=== PATIENT | female | born 1965 | race Caucasian/White ===

== ENCOUNTER 2016-03-24 16:36 | Emergency (ER) | payer OTHER ==
[2016-03-24 16:50] VITALS: BP 124/75; PULSE 64; TEMP 97.9; BMI 23.6
--- NOTE | 2016-03-24 18:35 | PDOC ---
History of Present Illness - General Chief Complaint: Injury Stated Complaint: LACERATION Time Seen by Provider: 03/24/16 18:15 History Source: Patient Exam Limitations: No Limitations - History of Present Illness Initial Comments: 03/24/16 18:30 CC laceration with metal kitchen object yesterday; last Td unknown Occurred: reports: yesterday Severity: reports: mild Past History - Past Medical History Allergies/Adverse Reactions: Allergies Allergy/AdvReac Type Severity Reaction Status Date / Time No Known Drug Allergies Allergy Verified 03/24/16 16:50 Home Medications: Ambulatory Orders Iron Gly,Fum/C/B12/Me-Thfolate [Maxaron Forte Tablet] 1 each PO DAILY 09/23/14 Norethindrone-E.estradiol-Iron [Lo Loestrin Fe 1-10 Tablet] 1 tab PO DAILY 09/23 Oxycodone HCl/Acetaminophen [Percocet 5/325 -] 1 tab PO Q4H #30 tablet 10/03/14 Suicide Attempt (Hx): No Other medical history: NONE - Surgical History Cholecystectomy: Yes - Immunization History Immunization Up to Date: Yes - Psycho/Social/Smoking Cessation Hx Anxiety: No Suicidal Ideation: No Smoking History: Never smoked Have you smoked in the past 12 months: No Hx Alcohol Use: No Drug/Substance Use Hx: No Substance Use Type: None Hx Substance Use Treatment: No Review of Systems - Review of Systems Constitutional: No: Chills, Fever, Malaise Respiratory: No: Symptoms reported, Cough Musculoskeletal: Yes: Other (1 cm laceration dorsum foot) *Physical Exam - Vital Signs Last Vital Signs Temp Pulse Resp BP Pulse Ox 97.9 F 64 20 124/75 98 03/24/16 16:47 03/24/16 16:47 03/24/16 16:47 03/24/16 16:47 03/24/16 16:47 - Physical Exam General Appearance: Yes: Appropriately Dressed. No: Apparent Distress HEENT: negative: TMs Normal, Pharynx Normal Musculoskeletal: positive: Other (1 cm laceration to left for dorsum foot at proximal 1st MT area; healing well, not infected) Medical Decision Making - Medical Decision Making 03/24/16 18:33 lwound check in 2 days; pt refuses Td shot at this time may have had recnet *DC/Admit/Observation/Transfer Diagnosis at time of Disposition: Laceration of left foot Qualifiers: Encounter type: initial encounter Qualified Code(s): S91.312A - Laceration without foreign body, left foot, initial encounter - Discharge Dispostion Disposition: HOME Condition at time of disposition: Stable Admit: No - Patient Instructions Additional Instructions: wound check with local MD in 2 days; please check with local MD about tetanus status - Post Discharge Activity Work/School Note: Back to Work
== END 2016-03-24 18:51 | disposition home or self-care (01) ==
LOC: JERFT 16:36
DX: S91.312A Laceration without foreign body, left foot, initial encounter (principal); W45.8XXA Other foreign body or object entering through skin, initial encounter; Y93.9 Activity, unspecified; Y92.000 Kitchen of unspecified non-institutional (private) residence as the place of occurrence of the external cause
CPT/HCPCS: 99281-25

== ENCOUNTER 2016-03-30 20:33 | Emergency (ER) | payer OTHER ==
[2016-03-30 20:51] VITALS: BP 105/42; PULSE 70; TEMP 98.7; BMI 23.8
--- NOTE | 2016-03-30 21:07 | PDOC ---
History of Present Illness - General Chief Complaint: Pain Stated Complaint: SWOLLEN RT FINGER Time Seen by Provider: 03/30/16 20:49 History Source: Patient, Other (daughter) Exam Limitations: No Limitations - History of Present Illness Occurred: reports: last week Upper Extremity Pain Location: right: 3rd finger Method of Injury: reports: direct blow Extremity Pain Location - Extremity Pain Location Extremity Pain Locations: right: 3rd finger (redness to dorsal distal phalanx) Past History - Travel Traveled outside of the country in the last 30 days: No Close contact w/someone who was outside of country & ill: No - Past Medical History Allergies/Adverse Reactions: Allergies Allergy/AdvReac Type Severity Reaction Status Date / Time No Known Drug Allergies Allergy Verified 03/30/16 20:42 Home Medications: Ambulatory Orders Cephalexin Monohydrate [Keflex -] 500 mg PO BID #14 capsule 03/30/16 Ibuprofen [Motrin -] 800 mg PO Q6H #30 tablet 04/19/16 Suicide Attempt (Hx): No - Surgical History Cholecystectomy: Yes - Immunization History Immunization Up to Date: Yes - Psycho/Social/Smoking Cessation Hx Anxiety: No Suicidal Ideation: No Smoking History: Never smoked Have you smoked in the past 12 months: No Hx Alcohol Use: No Drug/Substance Use Hx: No Substance Use Type: None Hx Substance Use Treatment: No Review of Systems - Review of Systems Comments:: 03/30/16 21:02 right 3rd digit redness and pain to distal dorsal phalanx neg numbness/tingling sensation *Physical Exam - Vital Signs Last Vital Signs Temp Pulse Resp BP Pulse Ox 98.7 F 70 17 105/42 98 03/30/16 20:43 03/30/16 20:43 03/30/16 20:43 03/30/16 20:43 03/30/16 20:43 - Physical Exam Comments: 03/30/16 21:03 Right 3rd digit erythema to distal dorsal distal phalanx cap refill<2sec F.R.O.M. pain on palp to distal dorsal phalanx neg lymphangitis ED Treatment Course - RADIOLOGY Radiology Studies Ordered: Category Date Time Status FINGER(S) RIGHT [RAD] Stat Radiology 03/30/16 21:01 Ordered Radiograph Interpretation: 03/30/16 21:05 XR right 3rd digit neg fx/dislocations Progress Note - Progress Note Progress Note: 50-year-old female who is right hand dominant presents to the emergency department complaining of pain to the dorsal distal aspect of the right third digit. Patient states she hit it against a wall last week but the pain was subsiding. She noticed slight redness 2 days ago which increased in severity and minimally in size last evening. She denies extremity numbness or tingling sensation. Patient denies fever/chills or extremity numbness or tingling sensation. Patient denies any other injuries/complaints. *DC/Admit/Observation/Transfer Diagnosis at time of Disposition: Cellulitis of finger - Discharge Dispostion Disposition: HOME Condition at time of disposition: Stable - Prescriptions Prescriptions: Cephalexin Monohydrate [Keflex -] 500 mg PO BID #14 capsule - Referrals Referrals: Shashank Dominguez MD [Primary Care Provider] - - Patient Instructions Printed Discharge Instructions: DI for Cellulitis -- Adult Additional Instructions: Elevate rest Avoid biting or picking at fingernails Follow up with your physician in 2 days or the ER for a wound check Return to the ER if the redness increases in size or you notice a red streak on your finger or any numbness/tingling sensation. - Post Discharge Activity Work/School Note: Back to Work
[2016-03-30] MEDS ORDERED: CEPHALEXIN MONOHYDRATE 500 MG CAPSULE (UD) PO ONE (21:21)
[2016-03-30] MEDS ORDERED: CEPHALEXIN MONOHYDRATE 500 MG CAPSULE (UD) ONE (21:22)
== END 2016-03-30 21:48 | disposition home or self-care (01) ==
LOC: JERFT 20:33
DX: M79.89 Other specified soft tissue disorders (principal); W22.8XXA Striking against or struck by other objects, initial encounter; Y93.9 Activity, unspecified; Y92.9 Unspecified place or not applicable
CPT/HCPCS: 73140-TC-RT; 99281-25

== ENCOUNTER 2016-04-19 19:09 | Emergency (ER) | payer OTHER ==
[2016-04-19 19:37] VITALS: BP 116/63; PULSE 66; TEMP 97.9; BMI 23.8
[2016-04-19] MEDS ORDERED: IBUPROFEN 400 MG TABLET (FP) PO ONE ×2 (20:27→20:31)
--- NOTE | 2016-04-19 20:34 | PDOC ---
History of Present Illness - General Chief Complaint: Redness To Affected Area Stated Complaint: PCP SENT/RT HAND SPLINT FINGER Time Seen by Provider: 04/19/16 20:03 History Source: Patient - History of Present Illness Occurred: reports: other Upper Extremity Pain Location: right: 3rd finger Past History - Past Medical History Allergies/Adverse Reactions: Allergies Allergy/AdvReac Type Severity Reaction Status Date / Time No Known Drug Allergies Allergy Verified 04/19/16 19:35 Home Medications: Ambulatory Orders Cephalexin Monohydrate [Keflex -] 500 mg PO BID #14 capsule 03/30/16 Ibuprofen [Motrin -] 800 mg PO Q6H #30 tablet 04/19/16 Suicide Attempt (Hx): No - Surgical History Cholecystectomy: Yes - Immunization History Immunization Up to Date: Yes - Psycho/Social/Smoking Cessation Hx Anxiety: No Suicidal Ideation: No Smoking History: Never smoked Have you smoked in the past 12 months: No Hx Alcohol Use: No Drug/Substance Use Hx: No Substance Use Type: None Hx Substance Use Treatment: No Review of Systems - Review of Systems Constitutional: No: Chills, Fever Integumentary: Yes: Erythema *Physical Exam - Vital Signs Last Vital Signs Temp Pulse Resp BP Pulse Ox 97.9 F 66 18 116/63 98 04/19/16 19:35 04/19/16 19:35 04/19/16 19:35 04/19/16 19:35 04/19/16 19:35 - Physical Exam General Appearance: Yes: Appropriately Dressed. No: Apparent Distress HEENT: positive: Normal Voice Neck: positive: Supple Respiratory/Chest: negative: Respiratory Distress Extremity: positive: Other (erythema overlying DIPJ of R 3rd finger w/ flexion defomity of joint, no sig swelling, incr warmth, or sig ttp) Integumentary: positive: Dry, Warm Neurologic: positive: Fully Oriented, Alert, Normal Mood/Affect Medical Decision Making - Medical Decision Making 04/19/16 20:29 50-year-old female, no significant history, seen in ED about 3 weeks ago for right middle finger erythema and flexion deformity of DIP joint. Was diagnosed with cellulitis. X-ray was negative. Completed Keflex, but symptoms persisted so has been following up with her PMD since. Saw Samira today and diagnosed with possible mallet finger. Had MRI of DIPJ done today but does not yet know results. Was given a prescription for finger splint by PMD and told to follow- up with a hand specialist but patient presented to the ED because she is not satisfied with diagnosis. Here for another opinion. Pt denies worsening pain, swelling, f/c. Patient well-appearing and stable with erythema overlying DIPJ of R 3rd digit w/ flexion deformity of joint, no increased warmth or significant tenderness to palpation. Doubt infection at this time. Splint placed. Patient given follow-up with Dr. Plummer of plastics. Told to follow- up with her PMD for MRI results *DC/Admit/Observation/Transfer Diagnosis at time of Disposition: Finger pain Qualifiers: Laterality: right Qualified Code(s): M79.644 - Pain in right finger(s) - Discharge Dispostion Disposition: HOME Condition at time of disposition: Good - Prescriptions Prescriptions: Ibuprofen [Motrin -] 800 mg PO Q6H #30 tablet - Referrals Referrals: Shashank Dominguez MD [Primary Care Provider] - Lars Plummer MD [Staff Physician] - - Patient Instructions Additional Instructions: Keep splint in place to finger. Taking Motrin every 6 hours as needed for pain and follow-up with Dr. Plummer of plastics in one week - Post Discharge Activity Work/School Note: Back to Work
== END 2016-04-19 20:47 | disposition home or self-care (01) ==
LOC: JERFT 19:09
PROC: 2W3JX1Z Immobilization of Right Finger using Splint (ICD-10-PCS; principal; 2016-04-19)
DX: M79.644 Pain in right finger(s) (principal)
CPT/HCPCS: 29130; 99281-25

== ENCOUNTER 2020-07-18 14:40 | Emergency (ER) | payer OTHER ==
[2020-07-18 14:56] VITALS: TEMP 98.3; BMI 22.3
[2020-07-18] MEDS ORDERED: ACETAMINOPHEN 325 MG TABLET (FP) PO ONE (16:04)
[2020-07-18] MEDS ORDERED: MAG HYDROX/AL HYDROX/SIMETH -MYLANTA- ORAL SUSPENSION PO ONE (16:04)
[2020-07-18] MEDS ORDERED: FAMOTIDINE 20 MG/50 ML IVPB 20 MG/50 ML MG IVPB ONE (16:04)
[2020-07-18 17:13] LABS: BASO % 0.4 % (0-2.0); EOS % 1.4 % (0-4.5); HEMATOCRIT 39.2 % (32.4-45.2); HEMOGLOBIN 13.6 GM/dL (10.7-15.3); LYMPH % 32.2 % (8-40); MCH 31.8 pg (25.7-33.7); MCHC 34.7 g/dl (32.0-36.0); MEAN CELL VOLUME 91.4 fl (80-96); MEAN PLT VOLUME 7.7 fl (7.5-11.1); MONO % 6.4 % (3.8-10.2); NEUT % 59.6 % (42.8-82.8); PLATELET COUNT 190 K/MM3 (134-434); RBC 4.29 M/mm3 (3.60-5.2); RDW 13.1 % (11.6-15.6); WHITE BLOOD COUNT 6.4 K/mm3 (4.0-10.0)
[2020-07-18 17:30] LABS: CHLORIDE 106 mmol/L (98-107); SODIUM 141 mmol/L (136-145)
[2020-07-18 17:32] LABS: CALCIUM 8.6 mg/dL (8.5-10.1)
[2020-07-18 17:33] LABS: ANION GAP 4 MMOL/L (8-16); BLOOD UREA NITROGEN 20.4 mg/dL (7-18); CO2 30 mmol/L (21-32); GLUCOSE,RANDOM 89 mg/dL (74-106); LIPASE 135 U/L (73-393)
[2020-07-18 17:36] LABS: CREATININE 0.6 mg/dL (0.55-1.3); SGOT/AST 23 U/L (15-37); SGPT/ALT 25 U/L (13-61)
[2020-07-18 17:37] LABS: BILIRUBIN,TOTAL 0.4 mg/dL (0.2-1)
[2020-07-18 17:39] LABS: ALK PHOS 103 U/L (45-117)
[2020-07-18 19:32] VITALS: BP 141/72; PULSE 55
== END 2020-07-18 19:35 | disposition home or self-care (01) ==
LOC: JER 14:40
PROC: 3E033GC Introduction of Other Therapeutic Substance into Peripheral Vein, Percutaneous Approach (ICD-10-PCS; principal; 2020-07-18)
DX: R10.13 Epigastric pain (principal)
CPT/HCPCS: 36415; 71046-TC-FY; 80053; 83690; 84484; 85025; 93005; 93010; 99285-25

== ENCOUNTER 2023-08-12 13:49 | Emergency (ER) | payer OTHER ==
[2023-08-12 14:00] VITALS: BP 124/80; PULSE 69; RESP 18; TEMP 98; BMI 24.7
[2023-08-12] MEDS ORDERED: KETOROLAC TROMETHAMINE 30 MG/1 ML VIAL ONE (15:49)
[2023-08-12] MEDS ORDERED: ACETAMINOPHEN 500 MG TABLET (FP) ONE (15:50)
[2023-08-12] MEDS: ACETAMINOPHEN 500 MG TABLET (FP) PO ONE (15:55)
[2023-08-12] MEDS: KETOROLAC TROMETHAMINE 30 MG/1 ML VIAL IM ONE (15:55)
== END 2023-08-12 14:42 | disposition home or self-care (01) ==
LOC: JERFT 13:49
PROC: 3E0233Z Introduction of Anti-inflammatory into Muscle, Percutaneous Approach (ICD-10-PCS; principal; 2023-08-12)
DX: S40.012A Contusion of left shoulder, initial encounter (principal); W20.8XXA Other cause of strike by thrown, projected or falling object, initial encounter; Y99.0 Civilian activity done for income or pay
CPT/HCPCS: 73030-TC-LT-FY; 99284-25